=== PATIENT | female | born 1965 | race Caucasian/White ===

== ENCOUNTER 2018-04-03 06:18 | Day surgery (SDC) | payer BC ==
[~2018-04-03 06:18] MED LIST: Buffered Lidocaine 0.9% SYRIN* 5 ML/SYR SYRINGE INTRADERM ONE
[2018-04-03] MEDS ORDERED: Scopolamine 1.5 mg* PATCH ONE ×2 (07:03→07:31)
[2018-04-03] MEDS ORDERED: ceFAZolin 2 GM PREMIX (*) 2 GM/50 ML BAG IVPB ONE (07:03)
[2018-04-03] MEDS ORDERED: Dexamethasone IV* 4 MG/ML 1 ML (4 MG) ONE (07:03)
[2018-04-03] MEDS ORDERED: Ondansetron ODT TAB* 4 MG ONE (07:06)
[2018-04-03] MEDS ORDERED: Lidocaine 1% INJ* 10 MG/ML 30 ML SDV ONE ×2 (07:12→07:32)
[2018-04-03] MEDS ORDERED: Bupivacaine 0.5% SDV PF* 30ML VIAL ONE (07:13)
[2018-04-03] MEDS ORDERED: fentaNYL* 50 MCG/ML 2 ML VIAL (100 MCG VIAL) ONE (07:19)
[2018-04-03] MEDS ORDERED: Midazolam* 1 MG/ML 5 ML VIAL (5 MG) ONE (07:19)
[2018-04-03] MEDS ORDERED: Lidocaine 2% PF * 5 ML VIAL ONE (07:36)
[2018-04-03] MEDS ORDERED: Cisatracurium* 2 MG/ML MDV 5 ML ONE (07:37)
[2018-04-03] MEDS ORDERED: Lidocain 1% EPI 1:100,000 * 30 ML MDV ONE (07:42)
[2018-04-03] MEDS ORDERED: Lidocaine 1% MPF wEPI 200,000* 30 ML SDV ONE (07:42)
[2018-04-03] MEDS ORDERED: HYDROmorphone INJ* 1 MG/ML CARPUJECT SYRINGE ONE (09:18)
[2018-04-03] MEDS ORDERED: HYDROmorphone INJ* 1 MG/ML CARPUJECT SYRINGE IV PRN (09:58)
[2018-04-03] MEDS ORDERED: fentaNYL* 50 MCG/ML 2 ML VIAL (100 MCG VIAL) IV PRN (09:58)
[2018-04-03] MEDS ORDERED: DiMENhydriNATE IV* 50 MG/ML VIAL IV PUSH PRN (09:58)
[2018-04-03] MEDS ORDERED: PROCHLORPERAZINE INJ 5 MG/ML 2 ML VIAL IV PRN (09:58)
[2018-04-03] MEDS ORDERED: Ondansetron ODT TAB* 4 MG PO PRN (09:58)
[2018-04-03] MEDS ORDERED: Acetaminophen TAB* 325 MG PO PRN (09:58)
[2018-04-03] MEDS ORDERED: Naloxone* 0.4 MG/ML 1 ML VIAL IV PRN (09:58)
[2018-04-03] MEDS ORDERED: PROCHLORPERAZINE INJ 5 MG/ML 2 ML VIAL ONE (11:40)
[2018-04-03] MEDS ORDERED: DiMENhydriNATE IV* 50 MG/ML VIAL ONE (11:40)
[2018-04-03] MEDS ORDERED: Acetaminophen ADULT LIQ* 650 MG/20.3 ML UDC ONE (12:50)
[2018-04-03 13:28] VITALS: BP 114/67
[2018-04-06] MEDS ORDERED: Scopolamine PATCH Remove* 1 NOTE MISC PATCH OFF ONE (09:59)
== END 2018-04-03 13:30 | disposition home or self-care (01) ==
LOC: OR 06:18
PROVIDERS: ATTEND Plastic Surgery
DX: N62 Hypertrophy of breast (principal); I10 Essential (primary) hypertension; Z85.828 Personal history of other malignant neoplasm of skin; Z87.891 Personal history of nicotine dependence
CPT/HCPCS: 88305; A9270-GY; J0690; J0780; J1100; J1170; J1240; J2001; J2250; J3010